=== PATIENT | female | born 1955 | race Two or more races ===

== ENCOUNTER 2020-08-21 13:14 | Inpatient (IN) | payer OTHER, MEDICAID ==
[~2020-08-21] VITALS: Ht 157.5 cm; Wt 78.5 kg
[2020-08-21] MEDS ORDERED: SODIUM CHLORIDE 0.9% 500 ML IVB ONE (13:30)
[2020-08-21] MEDS ORDERED: MORPHINE SULFATE 4 MG/ML SYR/VIAL IV ONE (13:30)
[2020-08-21] MEDS ORDERED: ONDANSETRON HCL 4 MG/2 ML VIAL IV ONE (13:30)
[2020-08-21 14:00] LABS: Urine Bacteria NONE SEEN /hpf (None Seen); Urine Blood TRACE /uL (Negative); Urine Mucus FEW (None Seen); Urine Specific Gravity 1.017 (1.001-1.035); Urine WBC 2 /hpf (0 - 5)
[2020-08-21 14:18] LABS: Basophils # (auto) 0 10 ^3/uL (0-0.2); Basophils % (auto) 0.2 % (0.0-2.0); Eosinophils # (auto) 0 10 ^3/uL (0-0.8); Eosinophils % (auto) 0.2 % (0.0-7.0); Hematocrit 37.4 % (36.0-46.0); Hemoglobin 12.9 g/dL (12.2-16.2); Lymphocytes # (auto) 1.6 10 ^3/uL (0.4-5.4); Lymphocytes % (auto) 32.1 % (10.0-50.0); Mean Corpuscular Hemoglobin 30.4 pg (28.0-32.0); Mean Corpuscular Hgb Conc. 34.5 g/dL (32.0-36.0); Monocytes # (auto) 0.5 10 ^3/uL (0-1.3); Monocytes % (auto) 10.9 % (0.0-12.0); Neutrophils # (auto) 2.7 10 ^3/uL (1.6-8.6); Neutrophils % (auto) 56.6 % (37.0-80.0); Nucleated Red Blood Cells % 0.1 %; Platelet Count (auto) 196 10^3/uL (140-450); Red Blood Cells 4.25 10^6/uL (4.0-5.20); White Blood Cell 4.8 10^3/uL (4.4-10.8)
[2020-08-21] MEDS ORDERED: metroNIDAZOLE 500MG/100ML 100 ML IV ONE (14:30)
[2020-08-21 14:39] LABS: Albumin 3.2 g/dL (3.4-5.0); Calcium 8.2 mg/dL (8.5-10.1); Potassium 3.6 mmol/L (3.5-5.1)
[2020-08-21 14:43] LABS: BUN/Creatinine Ratio 16.5; Bilirubin, Total 0.3 mg/dL (0.2-1.0); Total Protein 7.5 g/dL (6.4-8.2)
[2020-08-21] MEDS ORDERED: HYDROcodone-ACET 5/325MG TAB PO PRN (16:45)
[2020-08-21] MEDS ORDERED: ONDANSETRON HCL 4 MG/2 ML VIAL IV PRN (16:45)
[2020-08-21] MEDS ORDERED: MORPHINE SULF INJ 2 MG/ML SYRINGE 1ML IV PRN (16:45)
[2020-08-21] MEDS ORDERED: NITROGLYCERIN 0.4 MG SL TAB SL PRN (16:45)
[2020-08-21] MEDS ORDERED: ACETAMINOPHEN 500 MG TAB PO PRN (16:45)
[2020-08-21] MEDS: SODIUM CHLORIDE 0.9% 1,000 ML IV SCH (17:22)
[2020-08-21 21:25] VITALS: BP 134/62
--- NOTE | 2020-08-21 21:25 | NUR ---
Telemetry admit from ER to [facility]- Unit RIKKI LAGUNAS admitted to Telemetry unit. Patient oriented to ALEC ARELLANO, primary RN, unit, room, bed, and unit policies regarding patient care and visiting hours. Patient now on continuous telemetry monitoring, tele box # 2 and telemetry reading on arrival to unit is sinus rhythm. Patient is alert and oriented x4. Patient denies pain or shortness of breath at this time. No sign/symptoms of distress noted or verbalized at this time. Instructed on plan of care and encouraged patient to call for assistance as needed, patient verbalized understanding. Bed is locked in lowest position, side rails x 2 are up, call light is within reach, and bed alarm is on.
[2020-08-21] MEDS: metroNIDAZOLE 500MG/100ML 100 ML IV SCH (21:56)
[2020-08-21 22:00] VITALS: BP 134/62
--- NOTE | 2020-08-21 22:00 | NUR ---
Home Medications Home medications collected and placed in the [place] [id number] medication room. POM wristband placed on patient.
[2020-08-21] MEDS ORDERED: TRAZ300T16 PO (23:08)
[2020-08-21] MEDS ORDERED: AMLO5TAB15 PO (23:08)
[2020-08-22 05:00] VITALS: BP 123/76
[2020-08-22] MEDS: metroNIDAZOLE 500MG/100ML 100 ML IV SCH ×3 (05:39→22:08)
[2020-08-22] MEDS: SODIUM CHLORIDE 0.9% 1,000 ML IV SCH ×2 (05:39→19:27)
--- NOTE | 2020-08-22 06:24 | NUR ---
Respiratory note: PT ASSESSED. PT FOUND ON ROOM AIR HR 75, RR 18, SP02 95%. PT IS AWAKE ALERT AND RESPONSIVE. PT IS IN NO DISTRESS AT THIS TIME. B/S ARE DIMINISHED. WILL CONTINUE TO MONITOR. PT AWARE TO HAVE RT PAGED IF SOB.
[2020-08-22 08:00] VITALS: BP 130/61
[2020-08-22 08:34] VITALS: BP 130/61
[2020-08-22] MEDS: cefTRIAXone 1GM/50ML D5W 50 ML IV SCH (09:08)
[2020-08-22] MEDS: PANTOPRAZOLE 40 MG/10 ML VIAL INJ IV SCH (09:08)
[2020-08-22] MEDS: ASCORBIC ACID 500 MG TAB PO SCH ×2 (10:48→22:09)
[2020-08-22] MEDS: ZINC SULFATE 220mg CAP or TAB PO SCH (10:48)
[2020-08-22] MEDS: CHOLECALCIFEROL (VITD3) 2,000 UNIT CAP PO SCH (10:49)
[2020-08-22 11:59] VITALS: BP 135/64
--- NOTE | 2020-08-22 12:15 | NUR ---
DR SAAVEDRA AT BEDSIDE. DIET ADVANCED TO FULL LIQUID DIET
--- NOTE | 2020-08-22 13:15 | NUR ---
OPENING SHIFT NOTE Assumed care of patient from Tameka HAM. Patient is alert and oriented and currently on RA with no S/S of distress or SOB noted at this time. Patient denies any pain at this time. POC discussed with patient in detailed, all questions answered and patient verbalized understanding. Patient is ambulatory without assist. Bed in lowest position, locked, side rails up x2. Call light within reach and patient is encouraged to call for assistance as needed. Will continue to monitor PRN Q1hr.
--- NOTE | 2020-08-22 15:28 | NUR ---
IV removal IV DC'd with clean sterile technique, catheter fully intact. Pressure dressing applied to site. Patient tolerated well.
--- NOTE | 2020-08-22 15:31 | NUR ---
IV INSERTION IV access obtained, via clean sterile technique by inserting 20 gauge catheter at LEFT AC. IV secured properly. No trauma to site. Patient tolerated well.
[2020-08-22 17:00] VITALS: BP 129/81
--- NOTE | 2020-08-22 18:30 | NUR ---
PATIENT TOLERATED NEW ORDERED DIET OF FULL LIQUID FOR HER DINNER TRAY.
[2020-08-22 22:00] VITALS: BP 132/60
[2020-08-23 05:00] VITALS: BP 126/72
[2020-08-23] MEDS: metroNIDAZOLE 500MG/100ML 100 ML IV SCH (05:57)
--- NOTE | 2020-08-23 07:15 | NUR ---
OPEN NOTE Assumed care of patient from Carla chavez RN. Patient awake and alert,sitting up in bed, denied pain. No SOB or distress. Instructed patient to call anytime for assistance, patient verbalized understanding. Call light within reach, bed in lowest position, wheels locked within reach. Will continue to monitor.
--- NOTE | 2020-08-23 07:18 | NUR ---
CARE ENDORSED TO VENKATESH HAM. NO DISTRESS NOTED AT THIS TIME.
[2020-08-23 08:00] VITALS: BP 144/92
[2020-08-23] MEDS: cefTRIAXone 1GM/50ML D5W 50 ML IV SCH (08:49)
[2020-08-23] MEDS: ZINC SULFATE 220mg CAP or TAB PO SCH (08:49)
[2020-08-23] MEDS: SODIUM CHLORIDE 0.9% 1,000 ML IV SCH (08:49)
[2020-08-23] MEDS: ASCORBIC ACID 500 MG TAB PO SCH (08:50)
[2020-08-23] MEDS: PANTOPRAZOLE 40 MG/10 ML VIAL INJ IV SCH (08:50)
[2020-08-23] MEDS: CHOLECALCIFEROL (VITD3) 2,000 UNIT CAP PO SCH (08:50)
[2020-08-23] MEDS ORDERED: ASCO500T11 PO (11:21)
[2020-08-23] MEDS ORDERED: METR500T PO (11:21)
[2020-08-23] MEDS ORDERED: ZINC220T6 PO (11:21)
[2020-08-23] MEDS ORDERED: CHOL1CAP47 PO (11:21)
[2020-08-23] MEDS ORDERED: LEVO-28 PO (11:21)
[2020-08-23 12:00] VITALS: BP 144/80
--- NOTE | 2020-08-23 12:37 | NUR ---
MESSAGE LEFT ON [facility] VOICEMAIL [phone] TO INFORM THE PATIENT WILL BE DISCHARGED AFTER LUNCH AROUND 2 PM TO ENSURE PATIENT TOLERATED LUNCH WELL. THIS RN WILL TRY TO CALL THE DAUGHTER AGAIN IN AN HOUR.
[2020-08-23] MEDS ORDERED: ONDA-144 PO (13:04)
--- NOTE | 2020-08-23 15:13 | NUR ---
Discharge instructions given as ordered. Encourage to follow up with PMD as instructed. All questions and concerns addressed. Patient verbalized understanding. Medication reconciliation form completed and copy given to patient. Home medications held in Pharmacy returned to patient. IV removed with catheter intact, pressure dressing applied. Telemetry unit returned to ICU. Patient taken to vehicle via wheelchair with all personal belongings, accompanied by staff and family member. No distress noted at time of departure.
== END 2020-08-23 14:40 | disposition home or self-care (01) | DRG 391 ==
LOC: ER 13:14 → TELE 13:15 → TELE-EAST 21:18
PROVIDERS: ADMIT Nurse Practitioner Acute Care; ATTEND Internal Medicine
DX: K57.32 Diverticulitis of large intestine without perforation or abscess without bleeding (principal); U07.1 COVID-19; K80.10 Calculus of gallbladder with chronic cholecystitis without obstruction; N30.90 Cystitis, unspecified without hematuria; E66.9 Obesity, unspecified; N18.30 Chronic kidney disease, stage 3 unspecified; I12.9 Hypertensive chronic kidney disease with stage 1 through stage 4 chronic kidney disease, or unspecified chronic kidney disease; Z80.9 Family history of malignant neoplasm, unspecified; Z82.5 Family history of asthma and other chronic lower respiratory diseases; Z88.1 Allergy status to other antibiotic agents; Z88.5 Allergy status to narcotic agent; Z68.31 Body mass index [BMI] 31.0-31.9, adult
CPT/HCPCS: 36415; 71045; 74176; 80053; 81001; 82728; 83690; 85025; 86141; 87086; 87426; C9113; G0378; J0696; J2405; J3490

== ENCOUNTER 2021-11-27 22:28 | Emergency (ER) | payer OTHER, MEDICAID ==
[~2021-11-27] VITALS: Ht 157.5 cm; Wt 85.7 kg
[~2021-11-27 22:28] MED LIST: AMLO-489 PO; ASCO500T11 PO; CHOL1CAP47 PO; LEVO-28 PO; METR500T PO; ONDA-144 PO; TRAZ300T16 PO; ZINC220T6 PO
[2021-11-27 22:38] VITALS: BP 173/83
== END 2021-11-28 00:26 | disposition left against medical advice (07) ==
LOC: ER 22:36
DX: R06.02 Shortness of breath (principal); R07.9 Chest pain, unspecified; Z53.21 Procedure and treatment not carried out due to patient leaving prior to being seen by health care provider
CPT/HCPCS: 93005